=== PATIENT | female | born 1975 | race African-American/Black ===

== ENCOUNTER 2016-12-21 20:43 | Emergency (ER) | payer OTHER ==
[2016-12-21 21:01] VITALS: BP 177/95; PULSE 81; TEMP 98.7; BMI 31.8
[2016-12-21] MEDS ORDERED: BUPIVACAINE HCL/PF 0.5% (5MG/ML) 10 ML VIAL ONE (21:11)
[2016-12-21] MEDS ORDERED: KETOROLAC TROMETHAMINE 30 MG/1 ML VIAL IM ONE (21:13)
[2016-12-21] MEDS ORDERED: LIDOCAINE HCL 1%, 10 MG/ML (50 mL VIAL) INF ONE (21:13)
[2016-12-21] MEDS ORDERED: BUPIVACAINE HCL/PF (5 MG/ML) 30 ML VIAL IJ ONE (21:16)
[2016-12-21] MEDS ORDERED: LIDOCAINE HCL/PF 1% SDV 5ML VIAL ONE (21:19)
[2016-12-21] MEDS ORDERED: KETOROLAC TROMETHAMINE 30 MG/1 ML VIAL ONE (21:29)
--- NOTE | 2016-12-21 21:32 | PDOC ---
History of Present Illness - General Chief Complaint: Pain Stated Complaint: JAW PAIN Time Seen by Provider: 12/21/16 20:55 History Source: Patient Exam Limitations: No Limitations - History of Present Illness Initial Comments: 12/21/16 21:27 41yo Female patient w/ PmHx: DM presents to ED c/o jaw pain sudden onset. Patient states she was eating dinner when symptoms occurred. Patient acknowledges that she has multiple dental caries prior to symptom onset. Denies any other complaints at this time. Timing/Duration: other (Prior to arrival) Severity: moderate Modifying Factors: worse with: cold therapy, eating, immobilization, medication , movement, rest, other Associated Symptoms: denies: denies symptoms, chest pain, cough, diaphoresis, fever/chills, headaches, loss of appetite, malaise, nausea/vomiting, rash, seizure, shortness of breath, syncope, weakness, other Aspirin Received prior to arrival: No: no aspirin today, unknown, 81 mg x 1, 81 mg x 2, 81 mg x 3, 81 mg x 4, 325 mg x 1, provided at home, provided by EMS, provided by ED Past History - Travel Traveled outside of the country in the last 30 days: No Close contact w/someone who was outside of country & ill: No - Past Medical History Allergies/Adverse Reactions: Allergies Allergy/AdvReac Type Severity Reaction Status Date / Time Penicillins Allergy Verified 12/21/16 20:59 Home Medications: Ambulatory Orders Clindamycin [Cleocin -] 300 mg PO Q8H #30 capsule 12/21/16 Insulin (Levemir) [Levemir Flexpen -] 24 units SQ HS 12/21/16 Insulin Lispro [Humalog] 6 unit SQ TID 12/21/16 Levothyroxine [Synthroid -] 125 mcg PO DAILY 12/21/16 - Psycho/Social/Smoking Cessation Hx Suicidal Ideation: No Smoking History: Never smoked Have you smoked in the past 12 months: No Information on smoking cessation initiated: No Hx Alcohol Use: No Drug/Substance Use Hx: No Review of Systems - Review of Systems Able to Perform ROS?: Yes Is the patient limited German proficient: No Constitutional: No: Chills, Fever HEENTM: Yes: Mouth Pain, Dental Problems, Mouth Swelling. No: Nose Bleeding, Throat Pain, Throat Swelling, Difficulty Swallowing Respiratory: No: Cough, Stridor, Wheezing Cardiac (ROS): No: Chest Pain, Lightheadedness, Palpitations, Syncope ABD/GI: No: Diarrhea, Nausea, Vomiting All Other Systems: Reviewed and Negative *Physical Exam - Vital Signs Last Vital Signs Temp Pulse Resp BP Pulse Ox 98.7 F 81 14 177/95 99 12/21/16 20:59 12/21/16 20:59 12/21/16 20:59 12/21/16 20:59 12/21/16 20:59 - Physical Exam General Appearance: Yes: Nourished, Appropriately Dressed, Apparent Distress, Moderate Distress. No: Mild Distress, Severe Distress HEENT: positive: EOMI, SUKHDE[place], Normal ENT Inspection, Normal Voice, Symmetrical, TMs Normal, Pharynx Normal, Other (3rd molar and 2nd bicuspid enamel decay with root exposure. No gum line or gum inflammation noted. No foul odor noted.) Neck: positive: Trachea midline, Supple Respiratory/Chest: positive: Lungs Clear, Normal Breath Sounds. negative: Chest Tender, Respiratory Distress, Accessory Muscle Use, Labored Respiration, Rapid RR Cardiovascular: positive: Regular Rhythm, Regular Rate. negative: Edema, JVD, Murmur Gastrointestinal/Abdominal: positive: Normal Bowel Sounds, Soft. negative: Distended, Guarding, Rebound, Tenderness Musculoskeletal: positive: Normal Inspection. negative: CVA Tenderness Extremity: positive: Normal Capillary Refill, Normal Inspection, Normal Range of Motion. negative: Pedal Edema, Swelling, Calf Tenderness, Erythema, Inflammation Integumentary: positive: Normal Color, Dry, Warm. 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 Patient states she has relief of pain and is feeling much better. ED Treatment Course - Medications Given in the ED: ED Medications Discontinued Medications Generic Name Dose Route Start Last Admin Trade Name Freq PRN Reason Stop Dose Admin Bupivacaine HCl 5 mg 12/21/16 21:16 12/21/16 21:21 Bupivacaine 0.5% Vial IJ 12/21/16 21:17 5 mg ONCE ONE Administration Lidocaine HCl 2 ml 12/21/16 21:13 12/21/16 21:21 Xylocaine 1% INF 12/21/16 21:14 2 ml ONCE ONE Administration *DC/Admit/Observation/Transfer Diagnosis at time of Disposition: Pain due to dental caries - Discharge Dispostion Disposition: HOME Condition at time of disposition: Improved Admit: No - Prescriptions Prescriptions: Clindamycin [Cleocin -] 300 mg PO Q8H #30 capsule - Patient Instructions Printed Discharge Instructions: DI for Tooth Decay Additional Instructions: FOLLOW UP WITH DR. FERNANDEZ AND YOUR DENTIST FOR FURTHER EVALUATION. TAKE MEDICATIONS PRESCRIBED. RETURN IF ANY CONCERNS FOR FURTHER EVALUATION. Print Language: IRISH
[2016-12-21] MEDS ORDERED: CLINDAMYCIN HCL 300 MG CAPSULE PO ONE (22:06)
[2016-12-21] MEDS ORDERED: CLINDAMYCIN HCL 150 MG CAPSULE (FP) ONE (22:14)
== END 2016-12-21 22:35 | disposition home or self-care (01) ==
LOC: JER 20:43
PROC: 3E0233Z Introduction of Anti-inflammatory into Muscle, Percutaneous Approach (ICD-10-PCS; principal; 2016-12-21)
PROC: 3E023NZ Introduction of Analgesics, Hypnotics, Sedatives into Muscle, Percutaneous Approach (ICD-10-PCS; 2016-12-21)
DX: K02.9 Dental caries, unspecified (principal); E11.9 Type 2 diabetes mellitus without complications; Z79.4 Long term (current) use of insulin
CPT/HCPCS: 96372; 99281-25

== ENCOUNTER 2018-05-21 14:52 | Emergency (ER) | payer OTHER ==
--- NOTE | 2018-05-21 15:01 | PDOC ---
History of Present Illness - General Chief Complaint: Head/Neck problem Stated Complaint: LEFT ARM NUMBNESS Time Seen by Provider: 05/21/18 15:00 - History of Present Illness Initial Comments: 05/21/18 15:33 Ms. Oro is a 43 yo female w/ pmh of DM, vitaligo, and hypothyroidism who presents for evaluation of sudden onset left arm pain today. Patient reports she was helping her (disabled and requires assistance dressing) to put on his shoes when she experienced pain from her elbow down. Patient was then at work and moving arm when her pain was exacerbated by movement and now hurts from shoulder down. Patient denies any other symptoms at this time however reports associated tingling throughout her entire L arm and pain w/ any movement. The patient denies chest pain, shortness of breath, headache and dizziness. Denies fever, chills, nausea, vomit, diarrhea and constipation. Denies dysuria, frequency, urgency and hematuria. Allergies: Penicillins 05/21/18 16:24 Past History - Past Medical History Allergies/Adverse Reactions: Allergies Allergy/AdvReac Type Severity Reaction Status Date / Time Penicillins Allergy Verified 05/21/18 14:56 Home Medications: Ambulatory Orders Insulin (Levemir) [Levemir Flexpen -] 30 units SQ HS 12/21/16 Insulin Lispro [Humalog] 10 unit SQ TID 12/21/16 Levothyroxine [Synthroid -] 50 mcg PO DAILY 12/21/16 - Suicide/Smoking/Psychosocial Hx Smoking History: Never smoked Have you smoked in the past 12 months: No Hx Alcohol Use: No Drug/Substance Use Hx: No Review of Systems - Review of Systems Comments:: 05/21/18 15:38 GENERAL/CONSTITUTIONAL: No fever or chills. No weakness. HEAD, EYES, EARS, NOSE AND THROAT: No change in vision. No ear pain or discharge. No sore throat. CARDIOVASCULAR: No chest pain or shortness of breath RESPIRATORY: No cough, wheezing, or hemoptysis. GASTROINTESTINAL: No nausea, vomiting, diarrhea or constipation. GENITOURINARY: No dysuria, frequency, or change in urination. MUSCULOSKELETAL: +Pain w/ movement of L arm and tingling as described. No neck or back pain. SKIN: No rash NEUROLOGIC: No headache, vertigo, loss of consciousness ENDOCRINE: No increased thirst. No abnormal weight change HEMATOLOGIC/LYMPHATIC: No anemia, easy bleeding, or history of blood clots. ALLERGIC/IMMUNOLOGIC: No hives or skin allergy. *Physical Exam - Physical Exam Comments: 05/21/18 15:39 GENERAL: Awake, alert, and fully oriented, in no acute distress HEAD: No signs of trauma, normocephalic, atraumatic EYES: PERRLA, EOMI, sclera anicteric, conjunctiva clear ENT: Auricles normal inspection, hearing grossly normal, nares patent, oropharynx clear without exudates. Moist mucosa NECK: Normal ROM, supple, no lymphadenopathy, JVD, or masses LUNGS: No distress, speaks full sentences, clear to auscultation bilaterally HEART: Regular rate and rhythm, normal S1 and S2, no murmurs, rubs or gallops, peripheral pulses normal and equal bilaterally. ABDOMEN: Soft, nontender, normoactive bowel sounds. No guarding, no rebound. No masses EXTREMITIES: +Pain w/ palpation of left arm at shoulder and down towards hand. Patient feels pain with palpation of brachial plexus in hand. Sensation intact, pulses intact NEUROLOGICAL: Cranial nerves II through XII grossly intact. Normal speech, normal gait, no focal sensorimotor deficits SKIN: Warm, Dry, normal turgor, no rashes or lesions noted. Medical Decision Making - Medical Decision Making 05/21/18 16:24 Ms. Oro is a 43 yo female w/ pmh as described who presents for evaluation of left arm/shoulder pain. Patient exam negative for deformities; suspect muscular etiology of symptoms. XR ordered for r/o bony injury negative. Patient feeling better after 30mg IM toradol. Will d/c patient with instruction to f/u w/ PCP for further evaluation. Patient verbalized understanding and agreement and will comply. *DC/Admit/Observation/Transfer Diagnosis at time of Disposition: Left arm pain - Discharge Dispostion Disposition: HOME - Referrals Referrals: Janeth Foster MD [Primary Care Provider] - - Patient Instructions Printed Discharge Instructions: DI for Arm Pain Additional Instructions: You were evaluated today in the ER for your arm pain. XR revealed no bony injury. Your pain was relieved with 30mg IM toradol. Please follow-up in 1-2 days with primary care provider for further evaluation. Return to ER if any increase in pain, fever, chills, or other concerning symptoms. - Post Discharge Activity
[2018-05-21 15:22] VITALS: BP 170/94; PULSE 80; TEMP 98; BMI 35.4
[2018-05-21] MEDS ORDERED: KETOROLAC TROMETHAMINE 30 MG/1 ML VIAL IM ONE (15:32)
[2018-05-21] MEDS ORDERED: KETOROLAC TROMETHAMINE 30 MG/1 ML VIAL ONE (15:38)
--- NOTE | 2018-05-21 16:02 | PDOC ---
Attending Attestation - Resident Resident Name: Nhan Aguilar - ED Attending Attestation I have performed the following: I have examined & evaluated the patient, The case was reviewed & discussed with the resident, I agree w/resident's findings & plan, Exceptions are as noted - HPI HPI: 05/21/18 15:58 43y F hx of dm, hypothyroidism presents with L arm pain. Pt states she typically helps her dress in the AM, and she did so without event. When she went to put on her shoes she suddenly had pain in the forearm from the elbow radiating down to her hand. She was flexing/extending her arm and then noiced the pain worsen and radiated up to her shoulder. The patient notes that he feels tingling/nymb whenever she moves her arm and when is being touched. She denies any headache, neck pain, weakness, chest pain, shortness of breath, nausea, vomiting, diaphoresis, dysuria, urinary frequency. She denies any prior episodes of similar pain in the past GENERAL: The patient is awake, alert, and fully oriented, Nontoxic - in no acute distress. HEAD: Normocephalic, atraumatic. EYES: extraocular movements intact, sclera anicteric, conjunctiva clear. ENT: Normal voice, Moist mucous membranes. NECK: Normal range of motion, supple LUNGS: Breath sounds equal, clear to auscultation bilaterally. No wheezes, no rhonchi, no rales. HEART: Regular rate and rhythm, normal S1 and S2 without murmur, rub or gallop. ABDOMEN: Soft, nontender, normoactive bowel sounds. No guarding, no rebound. No CVA tenderness EXTREMITIES: Normal range of motion, no edema. No clubbing or cyanosis. No cords, erythema, or tenderness. NEUROLOGICAL: No facial assymetry, Normal speech, strength symmetric in upper and lower extremities, the pain is reproducible with tenderness in her left brachial plexus (with radiation of the pain down her arm) PSYCH: Normal mood, normal affect. SKIN: Warm, Dry, normal turgor, - Physicial Exam PE: 05/21/18 20:34 helen quintero - Medical Decision Making 05/21/18 16:01 suspect msk cause of her pain will obtain xray to r/o fx will give toradol will reassess 05/21/18 19:01 xray neg pt feels improved will dc with pmd fu return precutions wre discussed
== END 2018-05-21 16:37 | disposition home or self-care (01) ==
LOC: JER 14:52
PROC: 3E0233Z Introduction of Anti-inflammatory into Muscle, Percutaneous Approach (ICD-10-PCS; principal; 2018-05-21)
DX: M79.602 Pain in left arm (principal); E11.9 Type 2 diabetes mellitus without complications; Z79.4 Long term (current) use of insulin; E03.9 Hypothyroidism, unspecified; L80 Vitiligo
CPT/HCPCS: 73030-TC-LT-FY; 99282-25